=== PATIENT | female | born 1985 | race Caucasian/White ===

== ENCOUNTER → 2020-11-06 | Outpatient (CLI) | payer BC ==
--- NOTE | 2020-11-06 10:47 | USB ---
Bilateral axillary ultrasound INDICATION: Enlarged lymph nodes 2 weeks after COVID vaccine second dose. COMPARISON: Mammogram same date FINDINGS: The bilateral axilla were scanned with ultrasound. There is lymphadenopathy in the bilateral axilla measuring up to 1.9 x 1.4 x 1.2 cm on the left and m easuring up to 3.0 x 2.4 cm on the right. IMPRESSION: Bilateral axillary lymphadenopathy. Given patient's recent second COVID vaccination, clinical follow- up and ultrasound follow-up in 6 weeks is recommended. Fine-needle aspiration versus core needle biop sy could be performed earlier if clinically warranted. BI-RADS 3, probably benign.
--- NOTE | 2020-11-08 09:12 | MM ---
Reason for exam: screening (asymptomatic). Baseline mammogram. History: Family history of breast cancer in maternal grandmother. Took hormonal contraceptives for 3 months. Physical Findings: Nurse did not find any significant physical abnormalities on exam. MG Screening Mammo w CAD Bilateral CC and MLO view(s) were taken. XCCL view(s) were taken of the right breast. There are scattered fibroglandular densities. Bilateral lymphadenopathy, ultrasound recommended. These results were verbally communicated with the patient and result sheet given to the patient on 11/06/20. ASSESSMENT: Incomplete: need additional imaging evaluation, BI-RAD 0 RECOMMENDATION: Ultrasound of both breasts. (axilla ultrasound)
== END | disposition home or self-care (01) ==
LOC: RADMAMWWP 09:27
PROVIDERS: ATTEND Family Medicine
DX: Z12.31 Encounter for screening mammogram for malignant neoplasm of breast (principal); Z80.3 Family history of malignant neoplasm of breast
CPT/HCPCS: 77067